=== PATIENT | female | born 1955 | race Hispanic/Latino ===

== ENCOUNTER 2024-01-19 03:14 | Emergency (ER) | payer MEDICARE ==
[~2024-01-19] VITALS: Ht 152.4 cm; Wt 70.3 kg
[2024-01-19 05:45] VITALS: BP 144/65; PULSE 72; RESP 18; O2SAT 99
== END 2024-01-19 09:00 ==
LOC: EDH 03:14
DX: F41.9 Anxiety disorder, unspecified (principal); I10 Essential (primary) hypertension; E78.00 Pure hypercholesterolemia, unspecified; E11.9 Type 2 diabetes mellitus without complications; K21.9 Gastro-esophageal reflux disease without esophagitis; E03.9 Hypothyroidism, unspecified; F03.90 Unspecified dementia, unspecified severity, without behavioral disturbance, psychotic disturbance, mood disturbance, and anxiety; Z88.0 Allergy status to penicillin; Z88.8 Allergy status to other drugs, medicaments and biological substances
CPT/HCPCS: 84484; 93005